=== PATIENT | female | born 1955 | race Caucasian/White ===

== ENCOUNTER → 2020-06-27 | Outpatient (CLI) | payer MEDICARE, OTHER ==
--- NOTE | 2020-06-27 17:06 | RAD ---
Three-phase bone scan Clinical indications: Left knee pain since left knee surgery in 2016. COMPARISON: Left knee radiographic study dated November 14, 2019. No previous bone scan. TECHNIQUE: After IV infusion of 25 mCi of technetium 99m MDP, three-phase bone scan of both knees were performed. FINDINGS: No hyperemia is seen. No abnormal blood pool accumulation is seen. Therefore, there are no scintigraphic findings of infection. There is activity involving the distal shaft of the left femur adjacent to the stem of the femoral prosthesis. This may indicate stress fracture or possibly loosening. There is more focally prominent activity seen involving the lateral tibial plateau of the proximal left tibia. This has the same differential diagnosis. There are other foci of less prominent uptake involving the left knee which may represent postoperative change. There is prominent activity seen involving the medial tibial femoral joint compartment of the right knee consistent with osteoarthritis. IMPRESSION: Possible stress fracture or loosening of the proximal stem of the femoral prosthesis of the distal left femur. Possible stress fracture or loosening of the prosthesis in the region of the lateral tibial plateau of the proximal left tibia. Correlation with more recent radiographic series may be helpful. 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 Electronically signed by: Jayesh Nelson MD (06/27/2020 5:03 PM) [id number]
== END | disposition home or self-care (01) ==
LOC: NM 08:41
PROVIDERS: ATTEND Orthopaedic Surgery
DX: M17.11 Unilateral primary osteoarthritis, right knee (principal); Z96.652 Presence of left artificial knee joint; M25.562 Pain in left knee
CPT/HCPCS: 78315; A9503